=== PATIENT | female | born 1995 | race Caucasian/White ===

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

== ENCOUNTER 2018-05-20 14:54 | Outpatient (RCR) | payer OTHER | END 2018-08-18 | disposition home or self-care (01) | LOC: LAB 14:54 | PROVIDERS: ATTEND Internal Medicine | DX: E06.3 Autoimmune thyroiditis (principal); E28.2 Polycystic ovarian syndrome; E55.9 Vitamin D deficiency, unspecified | CPT/HCPCS: 36415 ==